=== PATIENT | male | born 1970 ===

== ENCOUNTER 2018-03-11 15:41 | Outpatient (CLI) | payer OTHER ==
[~2018-03-11 15:41] MED LIST: MEDROLPACK PO; NORFLEX100MG PO
== END 2018-03-11 15:55 | disposition home or self-care (01) ==
LOC: RAD 15:41
DX: M54.2 Cervicalgia (principal); M54.5 Low back pain

== ENCOUNTER 2019-01-14 09:09 | Outpatient (CLI) | payer OTHER | END 2019-01-14 09:21 | disposition home or self-care (01) | LOC: SONOGRAMA 09:09 → MAMO-SONO 09:15 → SONOGRAMA 09:21 | DX: N20.0 Calculus of kidney (principal); K80.10 Calculus of gallbladder with chronic cholecystitis without obstruction ==

== ENCOUNTER → 2019-08-19 12:58 | Outpatient (CLI) | payer OTHER | END | disposition home or self-care (01) | LOC: RAD 12:58 → LAB 12:58 | PROVIDERS: ATTEND Internal Medicine | DX: G44.201 Tension-type headache, unspecified, intractable (principal) ==

== ENCOUNTER 2021-06-28 11:50 | Outpatient (CLI) | payer OTHER ==
[~2021-06-28 11:50] MED LIST changes: +SKELAXIN800 MG PO
== END 2021-06-28 15:00 | disposition home or self-care (01) ==
LOC: RAD 11:50
PROVIDERS: ATTEND Internal Medicine
DX: M54.50 Low back pain, unspecified (principal); M79.671 Pain in right foot; I10 Essential (primary) hypertension; F45.41 Pain disorder exclusively related to psychological factors